=== PATIENT | male | born 1935 | race Caucasian/White ===

== ENCOUNTER 2017-01-26 13:29 | Inpatient (IN) | payer OTHER, MEDICAID ==
[~2017-01-26] VITALS: Ht 170.2 cm; Wt 61.2 kg
[2017-01-26 13:35] VITALS: BP_SYST 150
[2017-01-26] MEDS ORDERED: NS 500 ML IV SCH (14:03)
[2017-01-26 14:14] LABS: BASOPHILS # (AUTO) 0.1 K/uL (0.0-0.2); BASOPHILS % (AUTO) 0.6 % (0.0-2.0); EOSINOPHILS # (AUTO) 0.2 K/uL (0.0-0.4); EOSINOPHILS % (AUTO) 1.9 % (0.0-4.0); HEMOGLOBIN 13.4 g/dL (14.0-18.0); LYMPHOCYTES # (AUTO) 2.4 K/uL (1.0-5.5); LYMPHOCYTES % (AUTO) 20.7 % (20.5-51.5); MEAN CORPUSCULAR HEMOGLOBIN 31 pg (27-31); MEAN CORPUSCULAR HGB CONC 34 % (32-36); MEAN CORPUSCULAR VOLUME 94 fL (79.0-98.0); MONOCYTES # (AUTO) 0.9 K/uL (0.0-1.0); MONOCYTES % (AUTO) 7.3 % (1.7-9.3); NEUTROPHILS # (AUTO) 8.2 K/uL (1.8-7.7); NEUTROPHILS % (AUTO) 69.5 % (40.0-70.0); PLATELET COUNT (AUTO) 300 K/uL (130-430); RED BLOOD CELL COUNT(AUTO) 4.27 MIL/uL (4.2-6.2); RED CELL DISTRIBUTION WIDTH 12.7 % (9.0-15.0); WHITE BLOOD COUNT (AUTO) 11.8 K/uL (4.8-10.8)
[2017-01-26] MEDS ORDERED: MORPHINE 4 MG/ML INJ. SYRINGE IVP ONE (14:15)
[2017-01-26] MEDS ORDERED: ONDANSETRON HCL 4 MG/2 ML VIAL IVP ONE (14:15)
[2017-01-26 14:23] LABS: ANION GAP 9 (5-15); CHLORIDE 90 mmol/L (98-107); GLUCOSE 176 mg/dL (70-99); POTASSIUM 5.3 mmol/L (3.5-5.1); SODIUM SERUM 124 mmol/L (136-145); UREA NITROGEN, BLOOD 27 mg/dL (8-21)
[2017-01-26 14:25] LABS: INR 1.1 (0.80-1.20); PROTHROMBIN TIME 12.4 SECS (9.5-12.5)
[2017-01-26 14:36] LABS: ALANINE AMINOTRANSFERASE 20 U/L (12-78); ALBUMIN 3.3 g/dL (3.4-4.8); ASPARTATE AMINOTRANSFERASE 29 U/L (10-37); TOTAL BILIRUBIN 0.6 mg/dL (0.0-1.0)
[2017-01-26 15:09] LABS: BILIRUBIN,URINE NEGATIVE (NEGATIVE); BLOOD, URINE 3+ (NEGATIVE); CLARITY/URINE CLOUDY (CLEAR); COLOR,URINE YELLOW (YELLOW); GLUCOSE,URINE NEGATIVE (NEGATIVE); KETONES,URINE NEGATIVE (NEGATIVE); LEUKOCYTE ESTERASE ,URINE 1+ (NEGATIVE); NITRITE, URINE POSITIVE (NEGATIVE); PH,URINE 7.5 (5.0-8.0); PROTEIN URINE 1+ (NEGATIVE)
[2017-01-26 15:26] LABS: BACTERIA,URINE MANY /HPF (None Seen); COARSE GRANULAR CASTS,URINE 0-10 /LPF (None Seen); MUCUS,URINE None Seen /LPF (None Seen); RBC,URINE 50-80 /HPF (0-3); URINE AMORPHOUS PHOSPHATES 3+ /HPF (None Seen); WBC,URINE 20-50 /HPF (0-3)
[2017-01-26] MEDS ORDERED: TYC3 PO (15:32)
[2017-01-26] MEDS ORDERED: NACL 0.9% 1,000 ML IV ONE (15:45)
[2017-01-26 16:17] VITALS: BP_SYST 158
[2017-01-26] MEDS: NACL 0.9% 1,000 ML IV SCH ×2 (17:14→21:02)
[2017-01-26 20:05] VITALS: BP_SYST 150
[2017-01-26] MEDS ORDERED: ACETAMINOPHEN 325 MG TABLET PO PRN (21:15)
[2017-01-26] MEDS ORDERED: ONDANSETRON HCL 4 MG/2 ML VIAL IVP PRN (21:15)
[2017-01-26] MEDS ORDERED: MORPHINE 2 MG/ML INJ. SYRINGE IVP PRN (21:15)
[2017-01-26] MEDS ORDERED: HYDROmorphone 1 MG INJ. 1 MG/ML AMPUL IVP PRN (23:30)
[2017-01-26] MEDS: HYDROmorphone 2 MG/ML VIAL IVP PRN (23:51)
[2017-01-27] VITALS (7 sets, daily range): BP systolic 124–180
[2017-01-27] MEDS: NACL 0.9% 1,000 ML IV SCH ×2 (07:24→17:28)
[2017-01-27] MEDS ORDERED: cloNIDine HCL 0.1 MG TABLET PO PRN (09:45)
[2017-01-27 11:36] LABS: BASOPHILS # (AUTO) 0.1 K/uL (0.0-0.2); BASOPHILS % (AUTO) 0.7 % (0.0-2.0); EOSINOPHILS # (AUTO) 0.4 K/uL (0.0-0.4); EOSINOPHILS % (AUTO) 3.9 % (0.0-4.0); HEMATOCRIT 39.8 % (36-54); HEMOGLOBIN 13.1 g/dL (14.0-18.0); LYMPHOCYTES % (AUTO) 22.2 % (20.5-51.5); MEAN CORPUSCULAR HEMOGLOBIN 31 pg (27-31); MEAN CORPUSCULAR HGB CONC 33 % (32-36); MEAN CORPUSCULAR VOLUME 95 fL (79.0-98.0); MONOCYTES # (AUTO) 0.8 K/uL (0.0-1.0); MONOCYTES % (AUTO) 8.8 % (1.7-9.3); NEUTROPHILS # (AUTO) 5.9 K/uL (1.8-7.7); NEUTROPHILS % (AUTO) 64.4 % (40.0-70.0); PLATELET COUNT (AUTO) 316 K/uL (130-430); RED BLOOD CELL COUNT(AUTO) 4.22 MIL/uL (4.2-6.2); RED CELL DISTRIBUTION WIDTH 12.7 % (9.0-15.0); WHITE BLOOD COUNT (AUTO) 9.2 K/uL (4.8-10.8)
[2017-01-27 11:43] LABS: ANION GAP 6 (5-15); CHLORIDE 94 mmol/L (98-107); CREATININE 1.02 mg/dL (0.55-1.30); GLUCOSE 137 mg/dL (70-99); POTASSIUM 4.3 mmol/L (3.5-5.1); SODIUM SERUM 127 mmol/L (136-145); UREA NITROGEN, BLOOD 17 mg/dL (8-21)
[2017-01-27 11:59] LABS: ALANINE AMINOTRANSFERASE 21 U/L (12-78); ASPARTATE AMINOTRANSFERASE 28 U/L (10-37); THYROID STIMULATING HORMONE 1.15 uIu/mL (0.34-4.82); TOTAL BILIRUBIN 0.5 mg/dL (0.0-1.0)
[2017-01-27] MEDS ORDERED: LEVOFLOXACIN 500 MG/D5W 100 ML IV SCH (18:00)
[2017-01-28 01:29] VITALS: BP_SYST 148
[2017-01-28] MEDS: HYDROmorphone 2 MG/ML VIAL IVP PRN (02:03)
[2017-01-28 03:28] VITALS: BP_SYST 153
[2017-01-28] MEDS: NACL 0.9% 1,000 ML IV SCH (05:12)
[2017-01-28 08:00] VITALS: BP_SYST 147
[2017-01-28] MEDS ORDERED: HYDROcodone/ACETAMIN 10-325 MG TAB PO PRN (08:45)
[2017-01-28 09:11] LABS: ANION GAP 7 (5-15); CALCIUM 8.6 mg/dL (8.4-11.0); CHLORIDE 94 mmol/L (98-107); CREATININE 0.97 mg/dL (0.55-1.30); GLUCOSE 210 mg/dL (70-99); SODIUM SERUM 127 mmol/L (136-145); UREA NITROGEN, BLOOD 18 mg/dL (8-21)
[2017-01-28 11:20] VITALS: BP_SYST 147
== END 2017-01-28 11:40 | DRG 644 ==
LOC: SED 13:29 → STU 15:50 → SMU 01-27 10:27
PROVIDERS: ADMIT Internal Medicine Hospice and Palliative Medicine; ATTEND Internal Medicine Hospice and Palliative Medicine
DX: E22.2 Syndrome of inappropriate secretion of antidiuretic hormone (principal); N39.0 Urinary tract infection, site not specified; C79.51 Secondary malignant neoplasm of bone; E86.0 Dehydration; C61 Malignant neoplasm of prostate; I10 Essential (primary) hypertension; Z88.6 Allergy status to analgesic agent; Z90.49 Acquired absence of other specified parts of digestive tract; Z98.49 Cataract extraction status, unspecified eye
CPT/HCPCS: 36415; 70450-TC; 71010; 72125-TC; 80048; 80053; 81000-TC; 83605; 84443-TC; 84484; 85025; 85610-TC; 85730-TC; 87040-TC; 87086; 93005; 96365; 96375; 99285; J1170; J1956; J2270; J2405; J7030; J7040